=== PATIENT | female | born 1945 | race Caucasian/White ===

== ENCOUNTER 2016-09-05 17:32 | Inpatient (IN) | payer OTHER ==
[~2016-09-05] VITALS: Ht 167.6 cm; Wt 58.5 kg
[2016-09-05 17:45] VITALS: BP_SYST 202
[2016-09-05] MEDS ORDERED: NACL 0.9% 1,000 ML IV ONE (17:56)
[2016-09-05 18:14] LABS: BASOPHILS % (AUTO) 0.2 % (0.0-2.0); EOSINOPHILS % (AUTO) 0.5 % (0.0-4.0); HEMOGLOBIN 12.4 g/dL (12.0-16.0); LYMPHOCYTES % (AUTO) 12.1 % (20.5-51.5); MEAN CORPUSCULAR HEMOGLOBIN 30 pg (27-31); MEAN CORPUSCULAR HGB CONC 34 % (32-36); MEAN CORPUSCULAR VOLUME 90 fL (79.0-98.0); MONOCYTES # (AUTO) 0.6 K/uL (0.0-1.0); MONOCYTES % (AUTO) 7.2 % (1.7-9.3); NEUTROPHILS # (AUTO) 6.9 K/uL (1.8-7.7); PLATELET COUNT (AUTO) 145 K/uL (130-430); RED BLOOD CELL COUNT(AUTO) 4.12 MIL/uL (4.2-6.2); RED CELL DISTRIBUTION WIDTH 12.5 % (9.0-15.0); WHITE BLOOD COUNT (AUTO) 8.5 K/uL (4.8-10.8)
[2016-09-05 18:20] LABS: ANION GAP 10 (5-15); CALCIUM 9.2 mg/dL (8.4-11.0); CHLORIDE 100 mmol/L (98-107); CREATININE 1.13 mg/dL (0.55-1.30); GLUCOSE 115 mg/dL (70-99); POTASSIUM 3.8 mmol/L (3.5-5.1); SODIUM SERUM 139 mmol/L (136-145); UREA NITROGEN, BLOOD 19 mg/dL (8-21)
[2016-09-05 18:25] LABS: INR 1.1 (0.8-1.2); PROTHROMBIN TIME 12.1 SECS (9.5-12.5)
[2016-09-05] MEDS ORDERED: CLOP75TA2 PO (18:26)
[2016-09-05] MEDS ORDERED: CAT.2 PO (18:26)
[2016-09-05] MEDS ORDERED: LISI40TA4 PO (18:26)
[2016-09-05 18:29] LABS: ALANINE AMINOTRANSFERASE 51 U/L (12-78); ASPARTATE AMINOTRANSFERASE 32 U/L (10-37); TOTAL BILIRUBIN 0.9 mg/dL (0.0-1.0)
[2016-09-05] MEDS ORDERED: FURO20TA4 PO (18:29)
[2016-09-05] MEDS ORDERED: LEVO137T20 PO (18:29)
[2016-09-05] MEDS ORDERED: HYDR-4039 PO (18:29)
[2016-09-05] MEDS ORDERED: ROSU20TA PO (18:29)
[2016-09-05] MEDS ORDERED: METF-509 PO (18:29)
[2016-09-05] MEDS ORDERED: POTA-118 PO (18:29)
[2016-09-05] MEDS ORDERED: ASA81 PO (18:30)
[2016-09-05] MEDS ORDERED: CARV12.548 PO (18:34)
[2016-09-05] MEDS ORDERED: ZOLPIDEM TARTRATE 5 MG TABLET PO PRN (19:45)
[2016-09-05] MEDS ORDERED: cloNIDine HCL 0.2 MG TABLET PO PRN ×2 (19:45)
[2016-09-05] MEDS ORDERED: ATORVASTATIN 20 MG TABLET PO SCH (21:00)
[2016-09-05] MEDS: MESALAMINE 400 MG CAPSULE.DR PO SCH (21:33)
[2016-09-05] MEDS: PANTOPRAZOLE SODIUM 40 MG/VIAL (PROTONIX) IVP SCH (21:33)
[2016-09-05] MEDS: hydrALAZINE HCL 25 MG TABLET PO SCH (21:34)
[2016-09-05] MEDS: cloNIDine HCL 0.2 MG TABLET PO SCH (21:34)
[2016-09-05] MEDS: CARVEDILOL 12.5 MG TABLET (COREG) PO SCH (21:35)
[2016-09-05] MEDS: LISINOPRIL 20 MG TABLET PO SCH (21:36)
[2016-09-05] MEDS: LR 1,000 ML IV SCH (21:37)
[2016-09-05] MEDS: metroNIDAZOLE 500 MG TABLET PO SCH (23:22)
[2016-09-05] MEDS: CIPROFLOXACIN HCL 500 MG TABLET PO SCH (23:22)
[2016-09-06 00:55] VITALS: BP_SYST 137
[2016-09-06 04:41] VITALS: BP_SYST 175
[2016-09-06 06:23] LABS: BASOPHILS % (AUTO) 0.1 % (0.0-2.0); EOSINOPHILS # (AUTO) 0.1 K/uL (0.0-0.4); EOSINOPHILS % (AUTO) 1.7 % (0.0-4.0); HEMATOCRIT 31.3 % (36-48); LYMPHOCYTES % (AUTO) 14.1 % (20.5-51.5); MEAN CORPUSCULAR HEMOGLOBIN 29 pg (27-31); MEAN CORPUSCULAR HGB CONC 32 % (32-36); MEAN CORPUSCULAR VOLUME 90 fL (79.0-98.0); MONOCYTES # (AUTO) 0.8 K/uL (0.0-1.0); MONOCYTES % (AUTO) 11.4 % (1.7-9.3); NEUTROPHILS % (AUTO) 72.7 % (40.0-70.0); PLATELET COUNT (AUTO) 132 K/uL (130-430); RED BLOOD CELL COUNT(AUTO) 3.49 MIL/uL (4.2-6.2); RED CELL DISTRIBUTION WIDTH 12.4 % (9.0-15.0); WHITE BLOOD COUNT (AUTO) 6.9 K/uL (4.8-10.8)
[2016-09-06 06:53] LABS: ANION GAP 7 (5-15); CHLORIDE 105 mmol/L (98-107); GLUCOSE 111 mg/dL (70-99); POTASSIUM 3.4 mmol/L (3.5-5.1); SODIUM SERUM 138 mmol/L (136-145)
[2016-09-06 06:54] LABS: ALANINE AMINOTRANSFERASE 36 U/L (12-78); ALBUMIN 3.3 g/dL (3.4-4.8); ASPARTATE AMINOTRANSFERASE 22 U/L (10-37); CREATININE 0.87 mg/dL (0.55-1.30); FREE T4 (FREE THYROXINE) 0.9 ng/dL (0.6-1.6); THYROID STIMULATING HORMONE 0.88 uIu/mL (0.34-4.82); TOTAL BILIRUBIN 0.7 mg/dL (0.0-1.0); TOTAL PROTEIN, SERUM 5.8 g/dL (6.4-8.3); UREA NITROGEN, BLOOD 13 mg/dL (8-21)
[2016-09-06] MEDS ORDERED: LEVOTHYROXINE SODIUM 0.137 MG TABLET PO SCH (07:00)
[2016-09-06] MEDS: LR 1,000 ML IV SCH ×2 (07:00→08:22)
[2016-09-06] MEDS: metroNIDAZOLE 500 MG TABLET PO SCH (07:47)
[2016-09-06 08:25] VITALS: BP_SYST 197
[2016-09-06] MEDS: MESALAMINE 400 MG CAPSULE.DR PO SCH (08:42)
[2016-09-06] MEDS: LISINOPRIL 20 MG TABLET PO SCH (08:42)
[2016-09-06] MEDS: cloNIDine HCL 0.2 MG TABLET PO SCH (08:43)
[2016-09-06] MEDS: CARVEDILOL 12.5 MG TABLET (COREG) PO SCH (08:44)
[2016-09-06] MEDS: PANTOPRAZOLE SODIUM 40 MG/VIAL (PROTONIX) IVP SCH (08:45)
[2016-09-06] MEDS: hydrALAZINE HCL 25 MG TABLET PO SCH (08:45)
[2016-09-06] MEDS ORDERED: POTASSIUM CHLORIDE 10 MEQ TAB.PRT.SR PO SCH (09:00)
[2016-09-06] MEDS ORDERED: FUROSEMIDE 20 MG TABLET PO SCH (09:00)
[2016-09-06] MEDS ORDERED: POTASSIUM CHLORIDE 20 MEQ TAB.PRT.SR PO ONE (11:15)
[2016-09-06] MEDS: CIPROFLOXACIN HCL 500 MG TABLET PO SCH (11:26)
[2016-09-06 11:46] LABS: BASOPHILS % (AUTO) 0.1 % (0.0-2.0); EOSINOPHILS # (AUTO) 0.1 K/uL (0.0-0.4); EOSINOPHILS % (AUTO) 0.9 % (0.0-4.0); HEMATOCRIT 34.2 % (36-48); HEMOGLOBIN 11.1 g/dL (12.0-16.0); LYMPHOCYTES # (AUTO) 0.8 K/uL (1.0-5.5); LYMPHOCYTES % (AUTO) 9.3 % (20.5-51.5); MEAN CORPUSCULAR HEMOGLOBIN 29 pg (27-31); MEAN CORPUSCULAR HGB CONC 32 % (32-36); MEAN CORPUSCULAR VOLUME 90 fL (79.0-98.0); MONOCYTES # (AUTO) 0.7 K/uL (0.0-1.0); MONOCYTES % (AUTO) 7.6 % (1.7-9.3); NEUTROPHILS # (AUTO) 7.3 K/uL (1.8-7.7); NEUTROPHILS % (AUTO) 82.1 % (40.0-70.0); PLATELET COUNT (AUTO) 146 K/uL (130-430); RED BLOOD CELL COUNT(AUTO) 3.82 MIL/uL (4.2-6.2); RED CELL DISTRIBUTION WIDTH 12.8 % (9.0-15.0); WHITE BLOOD COUNT (AUTO) 8.9 K/uL (4.8-10.8)
[2016-09-06 12:00] VITALS: BP_SYST 142
[2016-09-06] MEDS ORDERED: SOD FERRIC GLUC COMPLEX/SUC 125 MG in NS 100 ML IV SCH (13:00)
[2016-09-06 13:16] LABS: IRON (SERUM) 42 mcg/dL (37-145); TOTAL IRON BIND. CAPACITY 347 ug/dL (250-450)
[2016-09-06 16:00] VITALS: BP_SYST 189
== END 2016-09-06 18:33 | disposition home or self-care (01) | DRG 391 ==
LOC: SED 17:32 → SMU 19:02
PROVIDERS: ADMIT Internal Medicine; ATTEND Internal Medicine
DX: K52.9 Noninfective gastroenteritis and colitis, unspecified (principal); K55.039 Acute (reversible) ischemia of large intestine, extent unspecified; D62 Acute posthemorrhagic anemia; E78.5 Hyperlipidemia, unspecified; I10 Essential (primary) hypertension; E03.9 Hypothyroidism, unspecified; E11.51 Type 2 diabetes mellitus with diabetic peripheral angiopathy without gangrene; K64.9 Unspecified hemorrhoids; I70.90 Unspecified atherosclerosis; K57.90 Diverticulosis of intestine, part unspecified, without perforation or abscess without bleeding; F32.9 Major depressive disorder, single episode, unspecified; F41.9 Anxiety disorder, unspecified; I16.0 Hypertensive urgency; Z88.6 Allergy status to analgesic agent; Z88.2 Allergy status to sulfonamides; Z88.8 Allergy status to other drugs, medicaments and biological substances; Z79.82 Long term (current) use of aspirin; Z79.899 Other long term (current) drug therapy
CPT/HCPCS: 36415; 80053; 83540-TC; 83550-TC; 83735-TC; 84439; 84443-TC; 84484; 85025; 85610-TC; 85730-TC; 86886; 86900; 86901; 87045-TC; 87046; 87086; 87230-TC; 93005; 99285; C9113; J2916; J7120

== ENCOUNTER 2017-06-14 13:40 | Outpatient (CLI) | payer OTHER, BC ==
[~2017-06-14 13:40] MED LIST: CARV12.548 PO; CAT.2 PO; FURO20TA4 PO; HYDR-4039 PO; LEVO137T20 PO; LISI40TA4 PO; METF-509 PO; POTA-118 PO; ROSU20TA PO
== END 2017-06-14 20:32 | disposition home or self-care (01) ==
LOC: SRD 13:40
PROVIDERS: ATTEND Internal Medicine
DX: M51.26 Other intervertebral disc displacement, lumbar region (principal); M43.16 Spondylolisthesis, lumbar region; I67.2 Cerebral atherosclerosis
CPT/HCPCS: 72110

== ENCOUNTER 2018-01-07 08:30 | Outpatient (CLI) | payer OTHER, BC ==
[~2018-01-07 08:30] MED LIST changes: -POTA-118 PO; +POTA10TA15 PO
== END 2018-01-07 19:26 | disposition home or self-care (01) ==
LOC: SCA 08:30
PROVIDERS: ATTEND Internal Medicine
DX: I08.3 Combined rheumatic disorders of mitral, aortic and tricuspid valves (principal)
CPT/HCPCS: 93306

== ENCOUNTER 2019-04-30 12:41 | Outpatient (CLI) | payer OTHER, BC ==
[~2019-04-30 12:41] MED LIST changes: -ROSU20TA PO; +ROSU20TA2 PO
[2019-04-30 13:42] LABS: BILIRUBIN,URINE NEGATIVE (NEGATIVE); BLOOD, URINE NEGATIVE (NEGATIVE); CLARITY/URINE CLEAR (CLEAR); COLOR,URINE YELLOW (YELLOW); GLUCOSE,URINE NEGATIVE (NEGATIVE); KETONES,URINE NEGATIVE (NEGATIVE); LEUKOCYTE ESTERASE ,URINE NEGATIVE (NEGATIVE); NITRITE, URINE NEGATIVE (NEGATIVE); PROTEIN URINE NEGATIVE (NEGATIVE); UROBILINOGEN,URINE 0.2 (0.2-1.0)
== END 2019-04-30 20:23 | disposition home or self-care (01) ==
LOC: SLB 12:41
PROVIDERS: ATTEND Internal Medicine
DX: N39.0 Urinary tract infection, site not specified (principal)
CPT/HCPCS: 81003; 87086; 87186-TC

== ENCOUNTER 2020-03-02 08:58 | Outpatient (CLI) | payer OTHER, BC | END 2020-03-02 21:16 | disposition home or self-care (01) | LOC: SCT 08:58 | PROVIDERS: ATTEND Internal Medicine | DX: R91.1 Solitary pulmonary nodule (principal); J98.4 Other disorders of lung | CPT/HCPCS: 71250-TC; 76376 ==

== ENCOUNTER 2020-05-31 15:42 | Outpatient (CLI) | payer OTHER, BC ==
[2020-05-31 16:26] LABS: BASOPHILS # (AUTO) 0.1 K/uL (0.0-0.2); EOSINOPHILS # (AUTO) 0.1 K/uL (0.0-0.4); EOSINOPHILS % (AUTO) 2.3 % (0.0-4.0); HEMATOCRIT 34.7 % (36-48); HEMOGLOBIN 11.3 g/dL (12.0-16.0); LYMPHOCYTES # (AUTO) 1.1 K/uL (1.0-5.5); LYMPHOCYTES % (AUTO) 20.1 % (20.5-51.5); MEAN CORPUSCULAR HEMOGLOBIN 30 pg (27-31); MEAN CORPUSCULAR HGB CONC 33 % (32-36); MEAN CORPUSCULAR VOLUME 92 fL (79.0-98.0); MONOCYTES # (AUTO) 0.6 K/uL (0.0-1.0); NEUTROPHILS # (AUTO) 3.4 K/uL (1.8-7.7); NEUTROPHILS % (AUTO) 64.6 % (40.0-70.0); PLATELET COUNT (AUTO) 146 K/uL (130-430); RED BLOOD CELL COUNT(AUTO) 3.78 MIL/uL (4.2-6.2); RED CELL DISTRIBUTION WIDTH 14.1 % (9.0-15.0); WHITE BLOOD COUNT (AUTO) 5.3 K/uL (4.8-10.8)
[2020-05-31 17:52] LABS: ALANINE AMINOTRANSFERASE 38 U/L (12-78); ANION GAP 8 (5-15); ASPARTATE AMINOTRANSFERASE 30 U/L (10-37); CALCIUM 9.9 mg/dL (8.4-11.0); CHLORIDE 103 mmol/L (98-107); CREATININE 1.26 mg/dL (0.55-1.30); GLUCOSE 133 mg/dL (70-99); SODIUM SERUM 139 mmol/L (136-145); TOTAL BILIRUBIN 0.5 mg/dL (0.0-1.0)
[2020-05-31 18:02] LABS: UREA NITROGEN, BLOOD 19 mg/dL (8-21)
== END 2020-05-31 20:47 | disposition home or self-care (01) ==
LOC: SLB 15:42
PROVIDERS: ATTEND Internal Medicine
DX: I11.0 Hypertensive heart disease with heart failure (principal); I50.9 Heart failure, unspecified; D64.9 Anemia, unspecified
CPT/HCPCS: 36415; 80053; 83880; 85025

== ENCOUNTER 2020-06-01 08:21 | Outpatient (CLI) | payer OTHER, BC ==
[~2020-06-01 08:21] MED LIST changes: +LISI40TA13 PO; -LISI40TA4 PO; -METF-509 PO; +METF-834 PO
== END 2020-06-01 20:14 | disposition home or self-care (01) ==
LOC: SUS 08:21
PROVIDERS: ATTEND Internal Medicine
DX: I82.409 Acute embolism and thrombosis of unspecified deep veins of unspecified lower extremity (principal)
CPT/HCPCS: 93970

== ENCOUNTER 2020-07-12 09:58 | Outpatient (CLI) | payer OTHER, BC | END 2020-07-12 20:53 | disposition home or self-care (01) | LOC: SCT 09:58 | PROVIDERS: ATTEND Internal Medicine | DX: I25.10 Atherosclerotic heart disease of native coronary artery without angina pectoris (principal); R91.1 Solitary pulmonary nodule | CPT/HCPCS: 71250-TC; 76376 ==